=== PATIENT | male | born 1990 | race African-American/Black ===

== ENCOUNTER 2023-04-06 04:54 | Emergency (ER) | payer OTHER ==
[2023-04-06 05:03] VITALS: BP 132/91; PULSE 70; RESP 20; TEMP 98.1; BMI 29.8
[2023-04-06] MEDS ORDERED: KETOROLAC TROMETHAMINE 30 MG/1 ML VIAL IM ONE (05:23)
[2023-04-06] MEDS ORDERED: ACETAMINOPHEN 500 MG TABLET (FP) PO ONE (05:23)
[2023-04-06] MEDS ORDERED: KETOROLAC TROMETHAMINE 30 MG/1 ML VIAL ONE (05:31)
[2023-04-06] MEDS ORDERED: oxyCODONE HCL 5 MG TABLET PO ONE (06:04)
[2023-04-06] MEDS ORDERED: oxyCODONE HCL 5 MG TABLET ONE (06:08)
== END 2023-04-06 06:13 | disposition home or self-care (01) ==
LOC: JER 04:54
PROC: 3E0233Z Introduction of Anti-inflammatory into Muscle, Percutaneous Approach (ICD-10-PCS; principal; 2023-04-06)
DX: K08.89 Other specified disorders of teeth and supporting structures (principal)
CPT/HCPCS: 99284-25